=== PATIENT | male | born 1945 | race Hispanic/Latino ===

== ENCOUNTER → 2022-01-27 | Outpatient (CLI) | payer MEDICARE | END | disposition home or self-care (01) | LOC: SHCH 14:30 | PROVIDERS: ATTEND Internal Medicine Cardiovascular Disease | DX: I11.9 Hypertensive heart disease without heart failure (principal); E78.5 Hyperlipidemia, unspecified | CPT/HCPCS: 93306 ==

== ENCOUNTER → 2022-02-04 | Outpatient (CLI) | payer MEDICARE ==
[~2022-02-04] MED LIST: REGADENOSON 0.4 MG/5 ML PF SYG IVP SCH
== END | disposition home or self-care (01) ==
LOC: SHCH 08:37
PROVIDERS: ATTEND Internal Medicine Cardiovascular Disease
DX: R07.9 Chest pain, unspecified (principal); I10 Essential (primary) hypertension
CPT/HCPCS: 78452; 96374; 93017; J2785; A9500 ×2

== ENCOUNTER → 2022-02-12 | Outpatient (CLI) | payer OTHER | END | disposition home or self-care (01) | LOC: CANPRECLI → RAH 02-10 15:23 | PROVIDERS: ATTEND Internal Medicine Cardiovascular Disease | DX: Z13.6 Encounter for screening for cardiovascular disorders (principal) | CPT/HCPCS: 75571 ==

== ENCOUNTER 2023-04-18 00:19 | Emergency (ER) | payer MEDICARE, OTHER ==
[~2023-04-18] VITALS: Ht 162.6 cm; Wt 72.6 kg
[2023-04-18 00:47] LABS: SARS-CoV-2, RNA, NAAT NEGATIVE SARS CoV-2 (NEGATIVE)
[2023-04-18 00:52] LABS: INFLUENZA TYPE A Negative For Type A (NEGATIVE); INFLUENZA TYPE B Negative For Type B (NEGATIVE)
[2023-04-18 01:10] LABS: BASOPHILS # (AUTO) 0.02 K/uL (0.00-0.20); BASOPHILS % (AUTO) 0.2 % (0.0-5.0); EOSINOPHILS # (AUTO) 0.03 K/uL (0.00-0.70); EOSINOPHILS % (AUTO) 0.3 % (0.0-8.0); HEMATOCRIT 41.2 % (42-54); IMMATURE GRANULOCYTE ABSOLUTE 0.03 K/uL (0-1); LYMPHOCYTES # (AUTO) 0.4 K/uL (1.0-4.8); LYMPHOCYTES % (AUTO) 3.8 % (21.0-51.0); MEAN CORPUSCULAR VOLUME 88.6 fL (79-99); MONOCYTES # (AUTO) 0.1 K/uL (0.1-1.0); MONOCYTES % (AUTO) 1.3 % (3.0-13.0); NEUTROPHILS % (AUTO) 94.1 % (40.0-77.0); PLATELET COUNT (AUTO) 143 K/uL (130-400); RED BLOOD CELL COUNT(AUTO) 4.65 MIL/uL (4.50-6.20); WHITE BLOOD COUNT (AUTO) 9.5 K/uL (4.8-10.8)
[2023-04-18 01:12] LABS: CARBON DIOXIDE 26 mmol/L (21-32); CHLORIDE 106 mmol/L (101-111); CREATININE 1.3 mg/dL (0.5-1.5); GLOMERULAR FILTR. RATE CALC 57 mL/min (>90); GLUCOSE,RANDOM 103 mg/dL (70-105); POTASSIUM 3.6 mmol/L (3.5-5.1); SODIUM SERUM 141 mmol/L (136-145); UREA NITROGEN, BLOOD 21 mg/dL (7-18)
[2023-04-18 01:15] LABS: PROTHROMBIN TIME 11.6 SEC (9.6-11.6)
[2023-04-18 01:16] LABS: PARTIAL THROMBOPLASTIN TIME 25.4 SEC (26.3-35.5)
[2023-04-18 01:19] LABS: ALANINE AMINOTRANSFERASE 30 U/L (12-78); ALBUMIN 3.7 g/dL (3.5-5.0); ASPARTATE AMINOTRANSFERASE 18 U/L (10-37); CREATINE KINASE, TOTAL 115 U/L (21-232); TOTAL PROTEIN, SERUM 7.2 g/dL (6.0-8.3)
[2023-04-18] MEDS ORDERED: ACETAMINOPHEN 500 MG TABLET PO ONE (01:30)
[2023-04-18 01:31] LABS: APPEARANCE,URINE CLOUDY (CLEAR); BILIRUBIN,URINE NEGATIVE (NEGATIVE); COLOR,URINE YELLOW (YELLOW); GLUCOSE, URINE (UA) NEGATIVE (NEGATIVE); KETONES,URINE NEGATIVE (NEGATIVE); LEUKOCYTE ESTERASE ,URINE 500 Leu/uL (NEGATIVE); NITRATE,URINE 2+ (NEGATIVE); OCCULT BLOOD,URINE LARGE (NEGATIVE); PROTEIN,URINE 10 mg/dL (NEGATIVE); UROBILINOGEN,URINE 0.2 mg/dL (0.2-1.0)
[2023-04-18 01:34] LABS: ADD UA MICROSCOPIC YES
[2023-04-18 01:37] LABS: BACTERIA,URINE FEW /HPF (None Seen); MUCUS,URINE RARE LPF (None Seen); RBC,URINE TNTC /HPF (0-1); WBC,URINE TNTC /HPF (0-1)
[2023-04-18 02:00] VITALS: TEMP 99
[2023-04-18 02:37] VITALS: BP 108/60; PULSE 107; RESP 17; O2SAT 95
[2023-04-18] MEDS ORDERED: CEFU500T67 PO (02:59)
[2023-04-18] MEDS ORDERED: ONDA-104 PO (03:00)
[2023-04-18] MEDS ORDERED: 0.9%NACL 1000ML 1,000 ML IV ONE (03:00)
[2023-04-18] MEDS ORDERED: CEFTRIAXONE 1G VIAL IVPB ONE (03:00)
== END 2023-04-18 04:10 | disposition home or self-care (01) ==
LOC: EDH 00:19
DX: N39.0 Urinary tract infection, site not specified (principal); E86.0 Dehydration; E78.00 Pure hypercholesterolemia, unspecified; I10 Essential (primary) hypertension; Z85.038 Personal history of other malignant neoplasm of large intestine; Z20.822 Contact with and (suspected) exposure to COVID-19; Z85.528 Personal history of other malignant neoplasm of kidney
CPT/HCPCS: 99285; 96374; 70450; 71045; 87635; 82550; 83735; 84484; 80053; 85025; 85610; 85730; 87040 ×2; 87077 ×2; 87088; 87186 ×2; 87804 ×2; 83605; 81001; 36415; 93005; C9803; J7030; J0696

== ENCOUNTER 2023-04-21 22:19 | Emergency (ER) | payer MEDICARE ==
[~2023-04-21] VITALS: Ht 162.6 cm; Wt 76.2 kg
[~2023-04-21 22:19] MED LIST changes: +CEFU500T67 PO; +ONDA-104 PO; -REGADENOSON 0.4 MG/5 ML PF SYG IVP SCH
[2023-04-22 00:51] VITALS: BP 122/74; PULSE 74; RESP 20; O2SAT 98
== END 2023-04-22 01:10 | disposition home or self-care (01) ==
LOC: EDH 22:19
DX: R33.9 Retention of urine, unspecified (principal); N40.1 Benign prostatic hyperplasia with lower urinary tract symptoms; E78.00 Pure hypercholesterolemia, unspecified; I10 Essential (primary) hypertension
CPT/HCPCS: 51702